=== PATIENT | male | born 1945 | race Caucasian/White ===

== ENCOUNTER 2017-07-03 10:04 | Inpatient (IN) | payer OTHER ==
--- NOTE | 2017-06-28 13:53 | GHP ---
[f rep st] PREOP HISTORY AND PHYSICAL DATE OF ADMISSION: 07/03/2017 PROBLEM: Left hip arthritis. HISTORY OF PRESENT ILLNESS: The patient is a 71-year-old man admitted for a left total hip arthropla sty. I did his right total hip replacement in 2011. He is doing extremely well with that hip. He i s now having pain and stiffness in his left hip. He states that the left hip is "not right." It is uncomfortable. He is limping. The hip is very stiff and sore after sitting. It is sometimes painfu l with walking, and it limits his ability to walk. He is not taking any pain medication. He is admi tted for a left total hip arthroplasty. PAST MEDICAL HISTORY: He has had coronary artery triple bypass surgery. He also has a pacemaker. Ludy richards has had a right lobectomy for lung cancer and believes he is disease free. No history of DVT, hepa titis, sleep apnea, or bleeding disorders. CURRENT MEDICATIONS: Atorvastatin 40 mg per day. Metoprolol 75 mg per day. DRUG ALLERGIES: Penicillin caused hives. METAL ALLERGY: None. LATEX ALLERGY: None. SOCIAL HISTORY: The patient is . He is retired. He does not smoke cigarettes and occasional ly drinks alcohol. FAMILY HISTORY: Positive for cancer and heart disease. PHYSICAL EXAMINATION: GENERAL: He is an alert, healthy-appearing man. Height 6 feet 2 inches. Porter ght 218 pounds. BMI 28. HEENT: Eyes: The conjunctivae and sclerae are clear. He has had bilatera l cataract surgery with lens implants. Mouth: Good oral hygiene. No loose teeth. CHEST: Clear. HEART: Regular rhythm, no murmurs. EXTREMITIES: Pertinent findings are limited to his left hip. He has full hip extension and 90 degrees of flexion. As he flexes the hip, he develops a 10-degree ext ernal rotation contracture and has 10 additional degrees of external rotation. Internal rotation 0 d egrees. Abduction 30 degrees. Extremes of motion are painful. Films show degenerative arthritis of his left hip. He has a right total hip arthroplasty which looks solid and properly positioned. He is 3 or 4 mm short on the left. IMPRESSION ON ADMISSION: 1. Left hip degenerative arthritis. He is prepared for a left total hip arthroplasty. 2. Status post right total hip arthroplasty with an excellent result. 3. Status post coronary artery triple bypass surgery. 4. Status post right lobectomy for lung cancer. 5. Pacemaker. PLAN: He will undergo a left total hip arthroplasty. The surgery has been described to him, darryn mishra the risks, complications, expectations, and recovery time. I have advised him that with bilateral procedures, there can be mild [id number] differences in the recovery and with the final result. A ll his questions have been answered and he consents to surgery. /[id number]/MODL
[~2017-07-03 10:04] MED LIST: POVIDONE-IODINE 20 ML in SODIUM CL IRRIG SOLUTION 500 ML IRR ONE; ROPIVACAINE 0.2% 80 MG, EPINEPHrine 0.2 MG, KETOROLAC TROMETHAMINE 30 MG in SYRINGE 0 ML IU ONE; TRANEXAMIC ACID 2,000 MG in NS 100 ML IV ONE; VANCOMYCIN 1.75 GM in D5W 500 ML IV ONE; VANCOMYCIN PHARMACY TO DOSE MISC ONE; ceFAZolin 1 GM/5 ML SYR ONE
[2017-07-03] MEDS ORDERED: FAMOTIDINE 20 MG TAB PO ONE (10:18)
[2017-07-03] MEDS ORDERED: DEXAMETHASONE 4 MG/ML VIAL IVP ONE (10:18)
[2017-07-03] MEDS ORDERED: GABAPENTIN 300 MG CAP PO ONE (10:18)
[2017-07-03] MEDS ORDERED: ACETAMINOPHEN 325 MG TAB PO ONE (10:18)
[2017-07-03] MEDS ORDERED: LIDOCAINE 1% 2 ML INJ ID PRN (10:19)
[2017-07-03] MEDS ORDERED: LR 1,000 ML IV ONE ×2 (10:19→11:30)
--- NOTE | 2017-07-03 10:47 | PDHPUP ---
History & Physical Update H&P update statement: This history and physical update is based on an assessment of the patient which was completed after admission or registration (within 24 hours), but prior to the surgery/procedure. H&P update: H&P reviewed & patient examined, no change in patient's condition since H&P completed
[2017-07-03] MEDS: VANCOMYCIN 1.5 GM in D5W 250 ML IV ONE ×2 (11:10→11:42)
[2017-07-03] MEDS ORDERED: MIDAZOLAM 2 MG/2 ML VIAL ONE (11:29)
[2017-07-03] MEDS ORDERED: ceFAZolin 2 GM/SWFI 20 ML SYR IVP ONE (11:30)
[2017-07-03] MEDS ORDERED: MIDAZOLAM 2 MG/2 ML VIAL IVP ONE (11:32)
--- NOTE | 2017-07-03 11:33 | PDANEPAE ---
ANE History of Present Illness left hip oa ANE Past Medical History - Cardiovascular History Hx Hypertension: No Hx Arrhythmias: Yes Hx Chest Pain: No Hx Coronary Artery / Peripheral Vascular Disease: Yes Hx CHF / Valvular Disease: No Hx Palpitations: No Cardiovascular History Comment: Afib/flutter. ablation x2 Dr Mclaughlin. PPM. Triple bypass 2011 - Pulmonary History Hx COPD: No Hx Asthma/Reactive Airway Disease: No Hx Recent Upper Respiratory Infection: No Hx Oxygen in Use at Home: No Hx Sleep Apnea: No Sleep Apnea Screening Result - Last Documented: Positive Pulmonary History Comment: lung ca - Neurologic History Hx Cerebrovascular Accident: No Hx Seizures: No Hx Dementia: No - Endocrine History Hx Diabetes: No - Renal History Hx Renal Disorders: No Renal History Comment: STENT TO RENAL ARTERY - Liver History Hx Hepatic Disorders: No - Neurological & Psychiatric Hx Hx Neurological and Psychiatric Disorders: No - Cancer History Hx Cancer: Yes Cancer History Comment: LUNG - Congenital Disorder History Hx Congenital Disorders: No - GI History Hx Gastrointestinal Disorders: No - Other Health History Other Health History: NONE - Chronic Pain History Chronic Pain: No - Surgical History Prior Surgeries: right hip. triple bypass. R lobectomy. 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 Pacemaker Model: [id number] Pacemaker Mode: reprogrammed to DOO by pacemaker rep Pacemaker Set Rate: 70 Date Pacemaker Last Checked: 07/03/2016 ANE Patient History - Allergies Allergies/Adverse Reactions: Penicillins Allergy (Severe, Verified 01/16/12 15:43) HIVES / EDEMA GENERALIZED - Home Medications Home Medications: Atorvastatin Calcium [Lipitor 40 mg (*)] 40 mg PO DAILY 02/16/15 [Last Taken 08/19 07:00] Herbals/Supplements -Info Only 1 ea PO DAILY 02/16/15 [Last Taken 06/25/17] [place]-3 Fatty Acids [Fish Oil 1000 mg (*)] 1,000 mg PO DAILY 02/16/15 [Last Taken 06/25/17] Aspirin [Aspirin 325 mg (*)] 162.5 mg PO BID 06/20/17 [Last Taken 06/25/17] C/E/Zn/Cu/OM3/DHA/EPA/LUT/ZEAX [Preservision Areds 2 Softgel] 1 each PO DAILY [Last Taken 06/25/17] Metoprolol Tartrate 75 mg PO BIDMEAL 06/20/17 [Last Taken 07/03/17 07:00] diphenhydrAMINE HCL [Unisom] 50 mg PO HS PRN 06/20/17 [Last Taken 07/02/17 21:00 ] - NPO status NPO Since - Liquids (Date): 07/02/17 NPO Since - Liquids (Time): 22:00 NPO Since - Solids (Date): 07/02/17 NPO Since - Solids (Time): 19:00 - Smoking Hx Smoking Status: Never smoked - Family Anes Hx Family Hx Anesthesia Complications: none ANE Labs/Vital Signs - Vital Signs Vital Signs: reviewed preoperatively; see RN documention for details Blood Pressure: 147/96 Heart Rate: 70 Respiratory Rate: 16 O2 Sat (%): 97 Height: 185.42 cm Weight: 99.79 kg ANE Physical Exam - Airway Neck exam: FROM Mallampati Score: Class 3 Mouth exam: normal dental/mouth exam - Pulmonary Pulmonary: no respiratory distress - Cardiovascular Cardiovascular: regular rate and rhythym - ASA Status ASA Status: III ANE Anesthesia Plan Anesthesia Plan: GA w LMA, spinal
[2017-07-03] MEDS ORDERED: PROPOFOL/EMULSION 500 MG/50 ML BOTTLE IV ONE (11:35)
[2017-07-03] MEDS ORDERED: fentaNYL 100 MCG/2 ML INJ ONE (12:10)
[2017-07-03] MEDS ORDERED: PROMETHAZINE HCL 25 MG/ML INJ IVP PRN ×2 (12:36→13:34)
[2017-07-03] MEDS ORDERED: fentaNYL 100 MCG/2 ML INJ IVP PRN (12:36)
[2017-07-03] MEDS ORDERED: OXYCODONE/APAP 5/325 TAB PO PRN (12:36)
[2017-07-03] MEDS ORDERED: HYDROmorphONE/DILAUDID 1 MG/ML INJ IVP PRN (12:36)
[2017-07-03] MEDS ORDERED: NALOXONE HCL 0.4 MG/ML INJ IVP PRN (12:36)
[2017-07-03] MEDS ORDERED: ONDANSETRON 4 MG/2 ML VIAL IVP PRN ×2 (12:36→13:34)
[2017-07-03] MEDS ORDERED: ceFAZolin 2 GM/SWFI 2 GM/20 ML SYR IVP ONE (13:00)
--- NOTE | 2017-07-03 13:10 | POSTOPPROG ---
Post Op Note Date of Operation: 07/03/17 Surgeon: Salbador Rodriguez Feed Preparation Operator: Dustin Anesthesiologist: Eric Anesthesia: IV Sedation, Spinal Post-op Diagnosis: Left hip severe degenerative arthritis Procedure: Left total hip arthroplasty Inf/Abcess present in the surg proc area at time of surgery?: No EBL: 100-500
--- NOTE | 2017-07-03 13:32 | POSTANESTH ---
Post Anesthetic Evaluation Cardiovascular Status: Normal, Stable Respiratory Status: Normal, Stable Level of Consciousness/Mental Status: Can Participate in Eval Pain Control: Adequate, Prn Tx Ordered Nausea/Vomiting Control: Adequate, Prn Tx Ordered Complications Possibly Related to Anesthesia: None Noted
[2017-07-03] MEDS ORDERED: TEMAZEPAM 15 MG CAP PO PRN (13:34)
[2017-07-03] MEDS ORDERED: KETOROLAC 30 MG/1 ML SDV IVP PRN (13:34)
[2017-07-03] MEDS ORDERED: NS 500 ML IV PRN (13:34)
[2017-07-03] MEDS ORDERED: ONDANSETRON DISINTEGRATING 4 MG TAB PO PRN (13:34)
[2017-07-03] MEDS ORDERED: METOCLOPRAMIDE 10 MG/2 ML VIAL IVP PRN (13:34)
[2017-07-03] MEDS ORDERED: traMADol 50 MG TAB PO PRN (13:34)
[2017-07-03] MEDS ORDERED: CYCLOBENZAPRINE 10 MG TAB PO PRN (13:34)
[2017-07-03] MEDS ORDERED: PROMETHAZINE HCL 25 MG SUPPR PR PRN (13:34)
[2017-07-03] MEDS ORDERED: MAGNESIUM HYDROXIDE 30 ML UDCUP PO PRN (13:34)
[2017-07-03] MEDS ORDERED: POLYETHYLENE GLYCOL 3350 17 GM PKT PO PRN (13:34)
[2017-07-03] MEDS ORDERED: DIPHENOXYLATE/ATROPINE LOMOTIL 1 TAB PO PRN (13:34)
[2017-07-03] MEDS ORDERED: LACTULOSE 20 GM/30 ML UDCUP PO PRN (13:34)
[2017-07-03] MEDS ORDERED: diphenhydrAMINE 25 MG CAP PO PRN (13:34)
[2017-07-03] MEDS ORDERED: BISACODYL 10 MG SUPP PR PRN (13:34)
[2017-07-03] MEDS ORDERED: HYDROCODONE/APAP 5/325 TAB PO PRN (13:34)
[2017-07-03] MEDS ORDERED: LR 1,000 ML IV SCH (14:00)
--- NOTE | 2017-07-03 14:08 | GOP ---
[f rep st] OPERATIVE REPORT DATE OF OPERATION: 07/03/2017 SURGEON: Salbador Rodriguez MD HUMAN SERVICES PROFESSIONAL: Rashel Jones, PAC and Can Peter CFA. ANESTHESIA: A combination of Marcaine, spinal, and IV sedation, and light general anesthesia by Dr. Thanh Reyes. PREOPERATIVE DIAGNOSIS: Left hip severe degenerative arthritis. POSTOPERATIVE DIAGNOSIS: Left hip severe degenerative arthritis. PROCEDURE PERFORMED: Operation performed 07/03/2017: Left total hip arthroplasty, Oxinium femoral head on highly cross-linked polyethylene cup liner. FINDINGS: DESCRIPTION OF PROCEDURE: The patient was started on IV vancomycin in the preop holding area. He developed nausea and the vancomycin was discontinued. He was then given 2 g of IV Ancef. He also received IV tranexamic acid at a dose of 20 mg/kg. He was placed on the operating room table and given spinal anesthesia with Marcaine by Dr. Reyes. He was then placed supine and given IV sedation. A Vidal catheter was not used. He wore a WALLACE stocking and SCD on the nonoperative leg. He was rolled to the right lateral decubitus position. The position was secured with the pegboard table attachment. An axillary roll was used, and all pressure points were carefully padded. I was careful to lock his pelvis in a rigid vertical position. His perineum was isolated with plastic adhesive drapes. His left hip and left lower extremity were prepped with ChloraPrep. They were draped free using sterile sheets, stockinette, and Ioban plastic drapes. The [employer] time-out was performed to verify the correct surgical side and site and the correct patient identity. The [place] time-out was also performed. I made a 5 to 6 inch straight oblique posterolateral hip skin incision. The subcutaneous tissues were sharply divided, and hemostasis was obtained using electrocautery. The fascia radha was identified and split along the axis of its fibers. I then curved posteriorly and proximally, and split the fascia of the gluteus carlos and bluntly split the muscle fibers in line with their orientation. The Charnley self-retaining retractor was inserted. His sciatic nerve was located, partially exposed, and protected throughout the procedure. The external rotators and the posterior hip capsule were divided as separate layers at the base of the femoral neck, tagged, and reflected posteriorly. A smooth 8-inch Steinmann pin was inserted vertically into the ilium, superior to the acetabulum. A 1/8-inch drill bit was inserted vertically into the greater trochanter and parallel to the first pin. The distance between the two was measured for leg length reference. His femoral head was dislocated posteriorly. Severe degenerative changes were present on the femoral head. The femoral neck was osteotomized at the appropriate level and inclination. I was careful to preserve all the posterior capsule and most of the anterior capsule. The remnant of his damaged labrum was excised. I prepared the femur first. This allowed me to plasterer tender the amount of natural femoral neck anteversion. This in turn allowed me to later determine the correct amount of cup anteversion. He had approximately 10 degrees of natural femoral neck anteversion. The canal was opened laterally with a box chisel. I reamed and broached sequentially up to size 13. I used a Boucher and Nephew Synergy broach in a size 13 with high offset as a trial stem. I was careful to lateralize adequately. Appropriate retractors were inserted to expose the acetabulum. The acetabulum was reamed sequentially up to 59 mm. I selected a 60 mm Boucher and Nephew R3 solid-backed hemispherical shell. This was tapped securely into place in the proper degree of inclination anteversion. I used the transverse acetabular ligament and other acetabular bony landmarks to help me properly orient the cup. I inserted a screw-in metal dome hole plug. I performed a series of trial reductions to determine length and stability. I concluded that the size 13 high offset stem with the 0 neck length and a 36 mm head with a 20-degree trial liner gave me the proper combination of appropriate length and good anterior and posterior stability. He was a couple of millimeters short preoperatively, and I was intentionally lengthening him. The 20-degree lip Boucher and Nephew R3 highly cross-linked polyethylene liner was inserted and tapped securely into place. The Boucher [employer] Nephew Synergy stem in a size 13 with high offset was inserted, press-fit and was very tight. I did one final trial reduction and confirmed that the 0 neck length with a 36 mm head was the proper combination. The Boucher and Nephew Oxinium head with an outside diameter of 36 mm and a neck length of 0 mm was tapped securely onto the clean trunnion. The acetabulum was irrigated and cleaned, and the hip was reduced one final time. He had excellent anterior and posterior stability and appropriate length. 40 mL of the joint anesthetic cocktail were injected into the capsule, the deep musculature, and the subcutaneous tissues around the skin edges. The joint was thoroughly irrigated one final time with the dilute Betadine solution. His sciatic nerve was reinspected and looked unharmed. The external rotators and the posterior hip capsule were repaired in separate layers with #2 FiberWire sutures through drill holes in the greater trochanter. This provided a very strong posterior capsular and external rotator repair. The fascia radha was closed first with a couple of interrupted [id number] # 2 FiberWire sutures followed by a running #2 barbed Ethicon Stratafix PDO suture. The subcutaneous tissues were closed with a running 0 barbed Ethicon Stratafix Monoderm suture. The skin was closed with a running 3-0 barbed Ethicon Stratafix Monoderm subcuticular suture. The skin edges were reapproximated and sealed with Dermabond glue. The wound was covered with a large sterile Mepilex waterproof dressing. A long-leg WALLACE stocking and SCD were applied to his left lower extremity. An abduction pillow was placed between his knees. He was awakened from anesthesia and rolled to the supine position on his [facility]. He was taken to PACU in satisfactory condition. There were no recognized intraoperative complications. The estimated blood loss was about 300 mL. I used a Boucher and Nephew R3 solid backed hemispherical shell with an outside diameter of 60 mm. The liner was a Boucher and Nephew R3 20-degree lipped highly cross-linked liner with an inside diameter of 36 mm. The femoral component was a high offset Boucher and Nephew Synergy stem in size 13 and press-fit. The femoral head was a Boucher and Nephew Oxinium head with a 0 neck length and a 36 mm outside diameter. Cristo Jones and Can Peter acted as surgical assistants. Their assistance was a medical necessity for safe completion of the procedure. /[id number]/MODL MTDD
[2017-07-03] MEDS: METOPROLOL TARTRATE 50 MG TAB PO SCH (17:54)
[2017-07-03] MEDS: ACETAMINOPHEN 325 MG TAB PO SCH ×2 (17:54→23:25)
[2017-07-03] MEDS: FAMOTIDINE 20 MG TAB PO SCH (20:29)
[2017-07-03] MEDS: SENNOSIDES/DOCUSATE SODIUM TAB PO SCH (20:29)
[2017-07-03] MEDS: ceFAZolin 2 GM/DEXTROSE 100 ML IV SCH (20:29)
[2017-07-03] MEDS: ASPIRIN 325 MG TAB PO SCH (20:30)
[2017-07-03] MEDS: TRANEXAMIC ACID 650 MG TAB PO SCH (23:25)
[2017-07-04] MEDS: TRANEXAMIC ACID 650 MG TAB PO SCH (05:09)
[2017-07-04] MEDS: ceFAZolin 2 GM/DEXTROSE 100 ML IV SCH (05:09)
[2017-07-04] MEDS: ACETAMINOPHEN 325 MG TAB PO SCH (05:09)
[2017-07-04 05:21] VITALS: RESP 16
[2017-07-04 07:30] VITALS: BP 137/84; PULSE 71; TEMP 98.1; O2SAT 98
[2017-07-04] MEDS ORDERED: FERROUS SULFATE 140 MG TAB.ER PO SCH (09:00)
[2017-07-04] MEDS ORDERED: ATORVASTATIN CALCIUM 40 MG TAB PO SCH (09:00)
[2017-07-04] MEDS ORDERED: PRESERVISION AREDS2 FORMULA EYE VIT 1 EACH PO SCH (09:00)
[2017-07-04] MEDS: FAMOTIDINE 20 MG TAB PO SCH (09:08)
[2017-07-04] MEDS: METOPROLOL TARTRATE 50 MG TAB PO SCH (09:09)
[2017-07-04] MEDS: ASPIRIN 325 MG TAB PO SCH (09:10)
[2017-07-04] MEDS: SENNOSIDES/DOCUSATE SODIUM TAB PO SCH (09:13)
--- NOTE | 2017-07-04 09:27 | SOAPPROG ---
SOAP Progress Note Assessment/Plan: Assessment: Afebrile. Awake and alert. He has been up and walking in his room. He needed urinary catheterization 1 time yesterday but is able to void spontaneously since then. Postop H&H is good. Sciatic nerve intact. Postop films look excellent. His dressing is dry. Plan: Up with physical therapy today. Occupational therapy today. Discharged later today. 07/04/17 09:26 Objective: Vital Signs Temp Pulse Resp BP Pulse Ox 36.7 C 71 16 137/84 H 98 07/04/17 07:30 07/04/17 09:09 07/04/17 07:30 07/04/17 09:09 07/04/17 07:30 Laboratory Results 07/04/17 04:30 07/03/17 07/04/17 07/05/17 05:59 05:59 05:59 Intake Total 4790 200 Output Total 1750 Balance 3040 200 ICD10 Worksheet Patient Problems: Problems Problem Status Onset Osteoarthritis of left hip Acute Cellulitis Active Edema of lower extremity Active Pleural effusion Active Atrial fibrillation or flutter Acute Heart block AV second degree Acute Supraventricular tachycardia Acute
--- NOTE | 2017-07-04 09:52 | GDS ---
[f rep st] DISCHARGE SUMMARY ADMISSION DIAGNOSIS: Left hip severe degenerative arthritis. DISCHARGE DIAGNOSIS: Left hip severe degenerative arthritis. OPERATIONS PERFORMED: 07/03/2017, a left total hip arthroplasty. POSTOPERATIVE COMPLICATIONS: None. CONDITION ON DISCHARGE: Improved. DESCRIPTION OF HOSPITAL COURSE: The patient was admitted to the hospital the morning of surgery. Hi s admission CBC was normal. The same day, under a combination of Marcaine, spinal, and IV sedation, he underwent a left total hip arthroplasty. Postoperatively, he was treated with multimodal DVT prop hylaxis, including aspirin and early mobilization. He required urinary catheterization 1 time, but w as able to void spontaneously after that. On the first postoperative day, his hemoglobin and hematoc rit were 12.4 and 37.3. He was seen by Physical Therapy and made good progress with ambulation and s tairs. By the time of discharge, he was afebrile, he was independent walking and his wound was clean and dry. DISPOSITION: The patient is discharged to his home. He will go to outpatient physical therapy next week at our [place] office. He may progress to full weightbearing on the left as tolerated. Use a n abduction pillow in bed for 3 weeks. Continue aspirin 325 mg p.o. daily for 21 days. He has presc riptions for oxycodone, tramadol and Celebrex for pain control. I will see him back in the office on July 23, 2017. If there are any problems, he is to call me at the office. /[id number]/MODL
--- NOTE | 2017-07-04 11:39 | ASDISCHSUM ---
Discharge Information Plan Status:Home with No Needs Medically Cleared to Leave: Discharge Date:07/04/2017 11:25 AM CM D/C Disposition:Home, Routine, Self-Care ADT D/C Disposition:Home, Routine, Self-Care Projected Discharge Date:07/04/2017 11:25 AM Transportation at D/C: Discharge Delay Reason: Follow-Up Date:07/04/2017 11:25 AM Discharge Slot: Final Diagnosis: Placement Information Patient Contact Information Contact Name:BRITTANY Relationship: Address:[address] City:[place] Alternate Phone: [facility]/Zip Code:[place] [address] Email: Financial Information Financial Class:Medicare Advantage Plans Primary Plan Desc:JHON MEDICARE ADV Primary Plan Number:[id number] Secondary Plan Desc: Secondary Plan Number: Assessment Information 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 video CM Note CM Note Notes: Ernie is planning to discharge home with the support of his . He had his hip replaced a few years ago and is familiar with the routine. Ernie has seen the online video and also has a walker. Date Signed: 06/20/2017 10:20 AM Electronically Signed By:Karolyn Viramontes Intervention Information
== END 2017-07-04 11:25 | disposition home or self-care (01) | DRG 470 ==
LOC: F3N 10:04
PROVIDERS: ADMIT Orthopaedic Surgery; ATTEND Orthopaedic Surgery
PROC: 0SRB02Z Replacement of Left Hip Joint with Metal on Polyethylene Synthetic Substitute, Open Approach (ICD-10-PCS; principal; 2017-07-03 12:00)
DX: M16.12 Unilateral primary osteoarthritis, left hip (principal); I25.10 Atherosclerotic heart disease of native coronary artery without angina pectoris; Z95.1 Presence of aortocoronary bypass graft; Z95.0 Presence of cardiac pacemaker; Z85.118 Personal history of other malignant neoplasm of bronchus and lung; Z96.641 Presence of right artificial hip joint
CPT/HCPCS: 97161-GP; 97165-GO; G8978-GP-CI; G8979-GP-CI; G8980-GP-CI; G8987-GO-CI; G8988-GO-CI; G8989-GO-CI; J0171; J0690; J1100; J1885; J2250; J2704; J2795; J3010; J3370

== ENCOUNTER → 2018-03-27 | Outpatient (CLI) | payer OTHER | LOC: CIMAGING 16:45 | PROVIDERS: ATTEND Family Medicine | DX: R05 Cough (principal) | CPT/HCPCS: 71046-PO ==

== ENCOUNTER → 2018-10-02 | Outpatient (CLI) | payer OTHER | LOC: CLAB 16:01 → CIMAGING 16:03 → EDSTATUS 16:03 | PROVIDERS: ATTEND Family Medicine | DX: I51.7 Cardiomegaly (principal) | CPT/HCPCS: 71046-PO ==

== ENCOUNTER 2018-10-07 08:02 | Emergency (ER) | payer OTHER ==
--- NOTE | 2018-10-07 08:50 | EDPHY ---
H & P Stated Complaint: Cough x 6 weeks, bruising RLQ abdomen x 5 days Time Seen by Provider: 10/07/18 08:25 HPI/ROS: CHIEF COMPLAINT: Bruise on right side History by patient HISTORY OF PRESENT ILLNESS: 73-year-old man with history of coronary artery disease status post CABG and renal stenosis status post renal stent x3 (last 1 in 2003) presents today complaining of nonproductive but severe cough that has been going on for about 6 weeks and then this new onset of bruising along his right flank. Patient states that he saw his primary care physician Dr. Marion for the cough and had a chest x-ray last week and was started on omeprazole. He took 1 dose of omeprazole and noticed that today bruising on his right flank. He is also on aspirin. He denies any direct trauma to the area but does recall having a severe coughing fit several days before which left him with significant pain on his right side near his lower ribs. He denies any current pain in the area, including over the area of ecchymoses. His thinks it is possible the bruise was there before he started the omeprazole. He denies any fever, shortness of breath, chest pain, abdominal pain, nausea vomiting, night sweats, weight loss. He has been eating well. He has never smoked. He takes aspirin but no other blood thinners. 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 Mouth: Mucous membranes moist. Oropharynx clear Neck: No bony tenderness, full range of motion Respiratory: Normal, effort, lungs are clear to auscultation. No wheezes, rales or rhonchi. Cardiovascular: Regular rate and rhythm. S1, S2, no murmurs, gallops or rubs appreciated. Well-healed midline sternal scar Gastrointestinal: Abdomen is soft and nontender, no masses, bowel sounds normal. Back: No CVA tenderness, no bony tenderness Neurological: Awake, alert and oriented x 3, cranial nerves 2-12 intact, no pronator drift, normal gait, Skin: Warm and dry, no rashes. Positive purple/red ecchymoses along right side and right lower abdomen which is nontender Musculoskeletal: No deformities or tenderness. Extremities: full range of motion, no edema, DP2+ bilat Psychiatric: Patient has normal affect, there is no agitation. Constitutional: Initial Vital Signs Temperature (C) 36.7 C 10/07/18 08:13 Heart Rate 71 10/07/18 08:13 Respiratory Rate 16 10/07/18 08:13 Blood Pressure 126/85 H 10/07/18 08:13 O2 Sat (%) 96 10/07/18 08:13 O2 Delivery Mode Room Air Allergies/Adverse Reactions: Penicillins Allergy (Verified 10/07/18 08:16) Pt reports HIVES / EDEMA GENERALIZED Home Medications: Medication Instructions Recorded Aspirin 10/07/18 Atorvastatin Calcium 10/07/18 Metoprolol Tartrate 10/07/18 Medical Decision Making ED Course/Re-evaluation: 73-year-old man brought in by his because of new onset right-sided ecchymoses but with stable vital signs and otherwise asymptomatic. Patient is were concerned this might be related to the omeprazole, There are no obvious interactions between omeprazole, aspirin atorvastatin metoprolol based upon my review on Hedy Comp that might explain the bruising. I suspect is more likely related to the painful coughing fit that he had. I reviewed his chest x- ray from a few days ago which was read as nothing acute by the radiologist, and no explanation for his cough. Patient is post applied a Digital Bloom tomorrow and at this point I find no contraindication to flying. Patient is wondering if he should continue to take the omeprazole and I recommend he discuss this with his primary care physician. I also recommend close follow-up with his dough cutter as I can't exclude a cardiac cause of his cough. Patient and his understand and are agreeable to this plan. Departure - Departure Disposition: Home, Routine, Self-Care Clinical Impression: Bruise Condition: Good Instructions: Hematoma (ED) Additional Instructions: You were seen by Dr. Rosaura Mcgraw today. I suspect the bruise on your side is related to the episode of painful coughing had prior to onset. I do recommend he follow up with her primary care physician Dr. Marion and your dough cutter Dr. Schmidt to discuss your cough. I recommend not taking omeprazole until you discussed this with Dr. Marion. Return for any worsening or new concerns. Referrals: Raghu Marion DO [Primary Care Provider] - As per Instructions
[2018-10-07 09:00] VITALS: BP 141/89
== END 2018-10-07 08:57 | disposition home or self-care (01) ==
LOC: CED 08:02
DX: M79.81 Nontraumatic hematoma of soft tissue (principal); R05 Cough; I25.10 Atherosclerotic heart disease of native coronary artery without angina pectoris; Z95.1 Presence of aortocoronary bypass graft; Z96.0 Presence of urogenital implants; Z88.0 Allergy status to penicillin
CPT/HCPCS: 99282-ER